=== PATIENT | male | born 1945 | race Caucasian/White ===

== ENCOUNTER 2024-06-22 09:08 | Inpatient (IN) | payer MEDICARE, OTHER, SELFPAY ==
[2024-06-02 09:02] LABS: Hemoglobin 15.7 g/dL (13.0-18.0); Mean Corp Hgb Conc. 34.1 g/dL (33.0-37.0); Mean Corpuscular Volume 93.7 fL (80.0-94.0); Mean Platelet Volume 9.5 fL (7.4-10.4); Platelet Count 131 10^3/uL (130-400); Red Blood Cell Count 4.91 10^6/uL (4.70-6.10); Red Cell Dist. Width 12.3 % (11.5-14.5); White Blood Cell Count 3.4 10^3/uL (4.8-10.8)
[2024-06-02 09:33] LABS: ALT (SGPT) 46 U/L (0-50); AST (SGOT) 44 U/L (17-59); Albumin 4.3 g/dl (3.5-5.0); Alkaline Phosphatase 68 U/L (38-126); Blood Urea Nitrogen 29 mg/dl (9-20); Calcium 9.3 mg/dl (8.4-10.2); Carbon Dioxide 30 mmol/L (22-30); Chloride 102 mmol/L (98-107); Glucose 103 mg/dl (70-99); Potassium 4.6 mmol/L (3.5-5.1); Sodium 138 mmol/L (135-145); Total Bilirubin 1.9 mg/dl (0.2-1.3); Total Protein 6.8 g/dl (6.3-8.2); eGFR > 60.00
[2024-06-02 10:13] LABS: Glycohemoglobin (HgbA1c) 5.1 % (4.0-5.6)
[2024-06-02 11:01] VITALS: BMI 36.7
[2024-06-22] VITALS (15 sets, daily range): BP systolic 100–147; BP diastolic 61–83; PULSE 70; O2SAT 95–97
[2024-06-22] MEDS: TYLENOL 650 MG PO ×5 (09:09→23:28)
[2024-06-22] MEDS: CELEBREX 200 MG PO (09:10)
[2024-06-22] MEDS: NORMOSOL-R/PLASMALYTE-A 1000 IV ×2 (09:11→13:53)
--- NOTE | 2024-06-22 12:01 | W.DS.TRANS ---
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
-
Discharge Instructions:
Discharge Diagnosis/Procedures R TYLER Dr. Contreras 06/22/24
Diet As tolerated
Activity With Walker
Driving Restrictions No driving
Bathing Restrictions OK to Shower
Other Services PT
Instructions:
Stand-Alone Forms: Total Hip/Knee Replacement D/C
Changes to Home Medications: Yes
Discharge Medications:
DC Medications w/original date entered in [employer]
atenolol 25 mg tablet 25 mg PO BID 06/16/24
cholecalciferol (vitamin D3) 50 mcg (2,000 unit) tablet (Vitamin D3) 150 mcg PO DAILY 06/16/24
cyanocobalamin (vitamin B-12) 2,500 mcg sublingual tablet (Vitamin B-12) 2,500 mcg sublingual DAILY 06/16/24
ezetimibe 10 mg-simvastatin 40 mg tablet (Vytorin) 1 tab PO HS 06/16/24
fluticasone furoate 100 mcg/actuation blister powder for inhalation (Arnuity Ellipta) 1 inh inhalation DAILY 06/16/24
rabeprazole 20 mg tablet,delayed release (AcipHex) 20 mg PO DAILY 06/16/24
tamsulosin 0.4 mg capsule (Flomax) 0.4 mg PO HS 06/16/24
tramadol 50 mg tablet 50 mg PO DAILY 06/16/24
Saccharomyces boulardii 250 mg capsule (Florastor) 250 mg PO BID #1 cap 06/22/24
acetaminophen 500 mg tablet 1,000 mg (2 x 500 mg) PO QID #0 tabs 06/22/24
albuterol sulfate 90 mcg/actuation aerosol inhaler 2 puff inhalation Q4HPRN PRN SOB #0 grams 06/22/24
cefadroxil 500 mg capsule 500 mg PO BID infection prevention #14 caps 06/22/24
celecoxib 100 mg capsule 100 mg PO BID Anti-inflammatory #14 caps 06/22/24
dexamethasone 4 mg tablet 4 mg PO BID inflammation #6 tabs 06/22/24
docusate sodium 100 mg capsule (Colace) 100 mg PO BID stool softner #1 cap 06/22/24
magnesium hydroxide 400 mg/5 mL oral suspension (Milk of Magnesia) 30 ml PO HS PRN Constipation #1 mL 06/22/24
ondansetron 4 mg disintegrating tablet 4 mg PO Q6H PRN n/v #20 tabs 06/22/24
oxycodone-acetaminophen 10 mg-325 mg tablet (Percocet) 1 tab PO Q6H PRN moderate-severe pain #30 tabs 06/22/24
sennosides 8.6 mg tablet (Senokot) 17.2 mg (2 x 8.6 mg) PO BID laxative #2 tabs 06/22/24
Home Medication Changes
Saccharomyces boulardii 250 mg capsule (Florastor) 250 mg PO BID #1 cap 06/22/24
acetaminophen 500 mg tablet 1,000 mg (2 x 500 mg) PO QID #0 tabs 06/22/24
albuterol sulfate 90 mcg/actuation aerosol inhaler 2 puff inhalation Q4HPRN PRN SOB #0 grams 06/22/24
cefadroxil 500 mg capsule 500 mg PO BID infection prevention #14 caps 06/22/24
celecoxib 100 mg capsule 100 mg PO BID Anti-inflammatory #14 caps 06/22/24
dexamethasone 4 mg tablet 4 mg PO BID inflammation #6 tabs 06/22/24
docusate sodium 100 mg capsule (Colace) 100 mg PO BID stool softner #1 cap 06/22/24
magnesium hydroxide 400 mg/5 mL oral suspension (Milk of Magnesia) 30 ml PO HS PRN Constipation #1 mL 06/22/24
ondansetron 4 mg disintegrating tablet 4 mg PO Q6H PRN n/v #20 tabs 06/22/24
oxycodone-acetaminophen 10 mg-325 mg tablet (Percocet) 1 tab PO Q6H PRN moderate-severe pain #30 tabs 06/22/24
sennosides 8.6 mg tablet (Senokot) 17.2 mg (2 x 8.6 mg) PO BID laxative #2 tabs 06/22/24
Pending Results: No
[2024-06-22] MEDS: ROXICODONE 5 MG PO (13:11)
[2024-06-22] MEDS: DILAUDID 0.25 MG IV ×2 (13:23→14:15)
--- NOTE | 2024-06-22 13:28 | SUR.PHASEI ---
vss. patient uses CPAP at home - now on nasal cannula at 2l/min - sats good. medicated with roxicodone and tylenol as ordered. HOB elevated for comfort - patient states difficulty with GERD. Refuses lunch tray at this time. Medicated with
dilaudid 0.25mg IV at 1324 for right hip pain 11/17.
--- NOTE | 2024-06-22 14:25 | PTCARENOTE ---
Telephone report received from ROAD DESIGN ENGINEERJOHNATHON Nichole; patient arrived @14:25 in bed on 2L O2 with IVF infusing; VSS; admission history obtained at bedside; PT/OT in room.
[2024-06-22] MEDS: ASPIRIN 325 MG PO (17:20)
[2024-06-22] MEDS: ANCEF 5 IV (17:20)
[2024-06-22] MEDS: TENORMIN 25 MG PO (19:30)
[2024-06-22] MEDS: ULTRAM 50 MG PO (19:30)
[2024-06-22] MEDS: COLACE 100 MG PO (19:30)
[2024-06-22] MEDS: DECADRON 4 MG IV (19:31)
[2024-06-22] MEDS: TORADOL 15 MG IV (19:31)
[2024-06-22] MEDS: SENOKOT 17.2 MG PO (19:31)
[2024-06-22] MEDS: LIPITOR 20 MG PO (21:29)
[2024-06-22] MEDS: BACTROBAN 2% OINTMENT 1 APPLIC NASAL (21:29)
[2024-06-22] MEDS: ZETIA 10 MG PO (21:30)
[2024-06-22] MEDS: NEURONTIN 300 MG PO (21:30)
[2024-06-22] MEDS: FLOMAX 0.4 MG PO (21:30)
[2024-06-22] MEDS: ROXICODONE 10 MG PO (23:28)
[2024-06-23] MEDS: ANCEF 5 IV (02:03)
[2024-06-23] MEDS: TYLENOL 650 MG PO ×2 (04:22→08:41)
[2024-06-23] MEDS: ROXICODONE 10 MG PO (06:27)
[2024-06-23 07:14] VITALS: BP 117/68
[2024-06-23] MEDS: ULTRAM 50 MG PO (08:40)
[2024-06-23] MEDS: CELEBREX 200 MG PO (08:40)
[2024-06-23] MEDS: TENORMIN 25 MG PO (08:40)
[2024-06-23] MEDS: PROTONIX 40 MG PO (08:40)
[2024-06-23] MEDS: DECADRON 4 MG IV (08:41)
[2024-06-23] MEDS: ASPIRIN 325 MG PO (08:41)
[2024-06-23] MEDS: COLACE 100 MG PO (08:41)
[2024-06-23] MEDS: SENOKOT 17.2 MG PO (08:41)
[2024-06-23] MEDS: TORADOL 15 MG IV (08:41)
[2024-06-23] MEDS: BACTROBAN 2% OINTMENT 1 APPLIC NASAL (08:42)
--- NOTE | 2024-06-23 09:50 | W.PN.ORTHO ---
Today's Communication / Plan
-
d/c
Assessment
.
Distal Motor Intact: Yes
Dressing:
Clean, dry and intact.
Plan
.
Surgery / Date: R TYLER Contreras 06/22/24
DVT Prophylaxis: Aspirin
Activity:
Out of bed.
PT/OT
Discharge Plan: Home w/ Outpatient PT
Subjective
.
.:
Patient resting comfortably.
Vital Signs and Labs
.
Vital Signs and Labs:
Lab Results
06/02/24 08:30
06/02/24 08:30
Temp Pulse Resp BP Pulse Ox
97.4 F 65 16 117/68 94
06/23/24 07:14 06/23/24 07:14 06/23/24 07:14 06/23/24 07:14 06/23/24 07:14
Non-invasive Hgb result: 12.8
Physical Exam
-
HEENT: No pallor, cyanosis, or jaundice. Throat clear.
NECK: Supple. No JVD.
RESPIRATORY: Lungs clear to auscultation.
CVS: S1, S2 normal. RRR.� No murmur, rub or gallop.
ABDOMEN: Soft, non-tender. No distension. BS+/normal.
EXTREMITIES: strength equal, no calf pain with palpation
DESK MANAGER: AOx3. No focal deficits. 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
[2024-06-23 10:05] VITALS: BP 114/74
[2024-06-23 10:06] VITALS: BP 114/74
--- NOTE | 2024-06-23 10:36 | CM ---
Patient seen at bedside. IA completed
CM consult completed.
IMM explained & signed. In chart
Dx: R TYLER
PMH: sleep apnea, HTN, HDL, L eye blindness
Patient has outpatient therapy set for at [facility]
Lives in a multilevel home with , 1 step to enter, 5-6 steps to bedroom
PLOF: Independent
DME: CPAP ([employer]), cane, walker, commode, dressing devices
Denies HH/rehab
Denies Insecurities
PCP: Alba Anne
Pharmacy: [facility]
PLAN: Home, outpatient therapy with [facility]
to transport
[2024-06-23 11:06] VITALS: BP 105/63
[2024-06-23] MEDS: TYLENOL PO (12:48)
== END 2024-06-23 13:15 | disposition home or self-care (01) | DRG 470 ==
LOC: 2 SOUTH 09:08
PROVIDERS: ADMITTING PHYSICIAN Specialist; FAMILY PHYSICIAN Family Medicine; REFERRING PHYSICIAN Internal Medicine Cardiovascular Disease
PROC: 0SR903A Replacement of Right Hip Joint with Ceramic Synthetic Substitute, Uncemented, Open Approach (ICD-10-PCS; 2024-06-22)
DX: M16.11 Unilateral primary osteoarthritis, right hip (principal); E66.9 Obesity, unspecified; Z68.35 Body mass index [BMI] 35.0-35.9, adult; Z79.82 Long term (current) use of aspirin; G47.33 Obstructive sleep apnea (adult) (pediatric); H93.19 Tinnitus, unspecified ear; I10 Essential (primary) hypertension; J45.909 Unspecified asthma, uncomplicated; K21.9 Gastro-esophageal reflux disease without esophagitis
CPT/HCPCS: 73502; 80053; 83036; 85027; 87070; 97110; 97116; 97163; 97167; 97530; 97535; C1713; C1776